=== PATIENT | male | born 1980 | race Caucasian/White ===

== ENCOUNTER 2017-09-03 14:18 | Emergency (ER) | payer OTHER ==
[2017-09-03 14:31] VITALS: BMI 36.3
[2017-09-03] MEDS ORDERED: SODIUM CHLORIDE 1,000 ML IV STA (14:53)
[2017-09-03 15:12] LABS: BASOPHIL 0.6 % (0-2.0); EOSINOPHIL 1.6 % (0-4.5); MCHC 33.4 g/dl (32.0-35.9); MEAN CELL VOLUME 83.7 fl (80-96); MEAN PLT VOLUME 9.3 fl (7.5-11.1); NEUTROPHILS 62.8 % (42.8-82.8); PLATELET COUNT 218 K/MM3 (134-434); RDW 14.2 % (11.9-15.9); WHITE BLOOD COUNT 11.6 K/mm3 (4.0-10.0)
[2017-09-03 15:13] LABS: URINE APPEARANCE CLEAR; URINE BILIRUBIN NEGATIVE (NEGATIVE); URINE BLOOD NEGATIVE (NEGATIVE); URINE COLOR YELLOW; URINE GLUCOSE (UA) NEGATIVE (NEGATIVE); URINE KETONE NEGATIVE (NEGATIVE); URINE NITRITE NEGATIVE (NEGATIVE); URINE PROTEIN NEGATIVE (NEGATIVE); URINE UROBILINOGEN NEGATIVE mg/dL (0.2-1.0)
--- NOTE | 2017-09-03 15:28 | PDOC ---
History of Present Illness - General Chief Complaint: Pain, Acute Stated Complaint: ABD PAIN Time Seen by Provider: 09/03/17 15:00 History Source: Patient Exam Limitations: No Limitations - History of Present Illness Initial Comments: 09/03/17 15:25 37 year old aortic valve dilitation p/w 3 days of RLQ pain. Denies fevers, chills, nausea, vomiting, diarrhea. States that the patient has persistent pain worsened with movement. No prior abdominal surgeries. Past History - Past Medical History Allergies/Adverse Reactions: Allergies Allergy/AdvReac Type Severity Reaction Status Date / Time No Known Allergies Allergy Verified 09/03/17 14:24 Home Medications: Ambulatory Orders Ibuprofen [Motrin -] 600 mg PO TID PRN #90 tablet MDD 3 09/03/17 Levofloxacin [Levaquin] 750 mg PO DAILY #10 tab 09/03/17 Metronidazole [Flagyl -] 500 mg PO TID #30 tablet 09/03/17 Cardiac Disorders: Yes (aortic outflow dilation) COPD: No - Suicide/Smoking/Psychosocial Hx Smoking History: Never smoked Have you smoked in the past 12 months: No Information on smoking cessation initiated: No Hx Alcohol Use: No Drug/Substance Use Hx: No Substance Use Type: None Review of Systems - Review of Systems Able to Perform ROS?: Yes Comments:: 09/03/17 15:26 GENERAL/CONSTITUTIONAL: No fever, weakness. HEAD, EYES, EARS, NOSE AND THROAT: No change in vision. No ear pain or discharge. No sore throat. CARDIOVASCULAR: No chest pain or shortness of breath. RESPIRATORY: No cough, wheezing, or hemoptysis. GASTROINTESTINAL: +abdominal pain. No nausea, vomiting, diarrhea, or decreased PO intolerance. GENITOURINARY: No dysuria, frequency, or change in urination. MUSCULOSKELETAL: No joint or muscle swelling or pain. No neck or back pain. SKIN: No rash NEUROLOGIC: No headache, vertigo, loss of consciousness, or change in strength/ sensation. ENDOCRINE: No increased thirst. No abnormal weight change. HEMATOLOGIC/LYMPHATIC: No anemia, easy bleeding, or history of blood clots. ALLERGIC/IMMUNOLOGIC: No hives or skin allergy. *Physical Exam - Vital Signs Last Vital Signs Temp Pulse Resp BP Pulse Ox 98.4 F 85 20 147/101 100 09/03/17 14:25 09/03/17 14:25 09/03/17 14:25 09/03/17 14:25 09/03/17 14:50 - Physical Exam Comments: 09/03/17 15:26 GENERAL: Awake, alert, and fully oriented, in no acute distress. HEAD: No signs of trauma EYES: PERRLA, EOMI, sclera anicteric, conjunctiva clear ENT: Auricles normal inspection, hearing grossly normal, nares patent, oropharynx clear without exudates. NECK: Normal ROM, supple, no lymphadenopathy, JVD, or masses LUNGS: Breath sounds equal, clear to auscultation bilaterally. No wheezes, and no crackles HEART: Regular rate and rhythm, normal S1 and S2, no murmurs, rubs or gallops ABDOMEN: +TTP RLQ. Soft, normoactive bowel sounds. No guarding, no rebound. No masses EXTREMITIES: Normal range of motion, no edema. No clubbing or cyanosis. No cords, erythema, or tenderness NEUROLOGICAL: Cranial nerves II through XII grossly intact. Normal speech, normal gait SKIN: Warm, Dry, normal turgor, no rashes or lesions noted. ED Treatment Course - LABORATORY CBC & Chemistry Diagram: 09/03/17 14:55 09/03/17 14:55 - ADDITIONAL ORDERS Additional order review: Laboratory Results 09/03/17 14:55 Urine Color Yellow Urine Appearance Clear Urine pH 5.0 Ur Specific [place] 1.024 Urine Protein Negative Urine Glucose (UA) Negative Urine Ketones Negative Urine Blood Negative Urine Nitrite Negative Urine Bilirubin Negative Urine Urobilinogen Negative 09/03/17 14:55 RBC 5.72 H MCV 83.7 MCHC 33.4 RDW 14.2 MPV 9.3 Neutrophils % 62.8 Lymphocytes % 27.8 Monocytes % 7.2 Eosinophils % 1.6 Basophils % 0.6 - RADIOLOGY Radiology Studies Ordered: Category Date Time Status ABDOMEN & PELVIS CT WITH CONTR [CT] Stat CT Scan 09/03/17 14:34 Ordered Medical Decision Making - Medical Decision Making 09/03/17 15:28 A portion of this note was documented by scribe services under my direction. I have reviewed the details of the note, within reason, and agree with the documentation with the following case summary and management plan written by me. Patient treated in the ED. Nursing notes are reviewed and incorporated into the medical decision-making. Vital signs reviewed. Peripheral IV access obtained by the nurse, laboratory studies are drawn and sent, reviewed and interpreted by myself. Vital Signs Temp Pulse Resp BP Pulse Ox 98.4 F 85 20 147/101 100 09/03/17 14:25 09/03/17 14:25 09/03/17 14:25 09/03/17 14:25 09/03/17 14:50 37 year old male p/w abdominal pain, RLQ. R/o appendicitis, cystitis. Labs, CT scan of abdomen and pelvis, UA. Reassess. Case signed out to Dr. Egan for further management and disposition. *DC/Admit/Observation/Transfer Diagnosis at time of Disposition: Diverticulitis - Discharge Dispostion Disposition: HOME - Prescriptions Prescriptions: Ibuprofen [Motrin -] 600 mg PO TID PRN #90 tablet MDD 3 PRN Reason: Pain Levofloxacin [Levaquin] 750 mg PO DAILY #10 tab Metronidazole [Flagyl -] 500 mg PO TID #30 tablet - Referrals Referrals: Adelaide Segura MD [Staff Physician] - King Orta [Primary Care Provider] - - Patient Instructions Printed Discharge Instructions: Diverticulitis Additional Instructions: you should take flagyl 500 mg three times daily x 10 days. take levaquin 750 mg daily x 10 days. follow up with a engine repairer. you can see DR. Segura, see referral information for phone number. return for worsening pain, fever, vomiting or any concerns. follow up with your primary doctor. take ibuprofen 600 mg every 8 hours as needed for pain. - Post Discharge Activity Forms/Work/School Notes: Back to Work
[2017-09-03 15:34] LABS: ALBUMIN 4.3 g/dl (3.4-5.0); ALK PHOS 75 U/L (45-117); ANION GAP 6 (8-16); BILIRUBIN,TOTAL 1.3 mg/dL (0.2-1.0); CALCIUM 9.2 mg/dL (8.5-10.1); CO2 29 mmol/L (21-32); GLUCOSE,RANDOM 98 mg/dL (74-106); SGOT/AST 26 U/L (15-37); SGPT/ALT 52 U/L (12-78); TOT PROT 8.3 g/dl (6.4-8.2)
[2017-09-03 18:09] VITALS: BP 128/64; PULSE 88; TEMP 98.3
[2017-09-03] MEDS ORDERED: LORazepam 1 MG TABLET PO ONE (20:21)
[2017-09-03] MEDS ORDERED: HALOPERIDOL 5 MG TABLET (FP) PO ONE (20:21)
[2017-09-03] MEDS ORDERED: METRONIDAZOLE 500 MG PREMIXED 500 MG/100 ML MG IVPB ONE ×2 (21:03→21:08)
[2017-09-03] MEDS ORDERED: LEVOFLOXACIN 500 MG IVPB 500 MG/100 ML BAG IVPB ONE ×2 (21:03→21:08)
--- NOTE | 2017-09-03 21:10 | PDOC ---
*Physical Exam - Vital Signs Last Vital Signs Temp Pulse Resp BP Pulse Ox 98.3 F 88 18 128/64 100 09/03/17 18:08 09/03/17 18:08 09/03/17 18:08 09/03/17 18:08 09/03/17 18:08 - Physical Exam General Appearance: Yes: Nourished Gastrointestinal/Abdominal: positive: Normal Bowel Sounds, Tender, Other (rlq ttp, no rebound no guarding. ) Integumentary: positive: Normal Color, Dry, Warm ED Treatment Course - LABORATORY CBC & Chemistry Diagram: 09/03/17 14:55 09/03/17 14:55 - ADDITIONAL ORDERS Additional order review: Laboratory Results 09/03/17 09/03/17 14:55 14:55 Sodium 140 Potassium 4.4 Chloride 105 Carbon Dioxide 29 Anion Gap 6 L BUN 15 Creatinine 1.0 Creat Clearance w eGFR > 60 Random Glucose 98 Calcium 9.2 Total Bilirubin 1.3 H D AST 26 ALT 52 Alkaline Phosphatase 75 Total Protein 8.3 H Albumin 4.3 Lipase 249 Urine Color Yellow Urine Appearance Clear Urine pH 5.0 Ur Specific [place] 1.024 Urine Protein Negative Urine Glucose (UA) Negative Urine Ketones Negative Urine Blood Negative Urine Nitrite Negative Urine Bilirubin Negative Urine Urobilinogen Negative 09/03/17 14:55 RBC 5.72 H MCV 83.7 MCHC 33.4 RDW 14.2 MPV 9.3 Neutrophils % 62.8 Lymphocytes % 27.8 Monocytes % 7.2 Eosinophils % 1.6 Basophils % 0.6 - Medications Given in the ED: ED Medications Discontinued Medications Generic Name Dose Route Start Last Admin Trade Name Diego PRN Reason Stop Dose Admin Haloperidol 5 mg 09/03/17 20:21 09/03/17 20:27 Haldol - PO 09/03/17 20:22 Not Given ONCE ONE Sodium Chloride 1,000 mls @ 1,000 mls/hr 09/03/17 14:53 09/03/17 15:04 Normal Saline - IV 09/03/17 15:52 1,000 mls/hr ASDIR STA Administration Lorazepam 2 mg 09/03/17 20:21 09/03/17 20:27 Ativan - PO 09/03/17 20:22 Not Given ONCE ONE Medical Decision Making - Medical Decision Making 09/03/17 21:05 ct reading with epiploic appendigitis vs. right sided diverticulitis. pt tender on exam. will treat with flagyl and levaquin. dc with gi followup. motrin for pain control. *DC/Admit/Observation/Transfer Diagnosis at time of Disposition: Diverticulitis - Prescriptions Prescriptions: Levofloxacin [Levaquin] 750 mg PO DAILY #10 tab Metronidazole [Flagyl -] 500 mg PO TID #30 tablet - Referrals Referrals: King Orta [Primary Care Provider] - Adelaide Segura MD [Staff Physician] - - Patient Instructions Printed Discharge Instructions: Diverticulitis Additional Instructions: you should take flagyl 500 mg three times daily x 10 days. take levaquin 750 mg daily x 10 days. follow up with a stamping operator. you can see DR. Segura, see referral information for phone number. return for worsening pain, fever, vomiting or any concerns. follow up with your primary doctor. take ibuprofen 600 mg every 8 hours as needed for pain. - Post Discharge Activity
[2017-09-03] MEDS ORDERED: KETOROLAC TROMETHAMINE 30 MG/1 ML VIAL IVPUSH ONE (21:13)
[2017-09-03] MEDS ORDERED: KETOROLAC TROMETHAMINE 30 MG/1 ML VIAL ONE (21:17)
[2017-09-03 21:46] LABS: URINE LEUK ESTERASE Negative (NEGATIVE)
== END 2017-09-03 21:45 | disposition home or self-care (01) ==
LOC: JER 14:18
PROC: 3E0337Z Introduction of Electrolytic and Water Balance Substance into Peripheral Vein, Percutaneous Approach (ICD-10-PCS; principal; 2017-09-03)
PROC: 3E03329 Introduction of Other Anti-infective into Peripheral Vein, Percutaneous Approach (ICD-10-PCS; 2017-09-03)
PROC: 3E03329 Introduction of Other Anti-infective into Peripheral Vein, Percutaneous Approach (ICD-10-PCS; 2017-09-03)
PROC: 3E0333Z Introduction of Anti-inflammatory into Peripheral Vein, Percutaneous Approach (ICD-10-PCS; 2017-09-03)
DX: K57.92 Diverticulitis of intestine, part unspecified, without perforation or abscess without bleeding (principal); K63.89 Other specified diseases of intestine
CPT/HCPCS: 36415; 74177-TC; 80053; 81003; 83690; 85025; 87086; 99283-25